=== PATIENT | female | born 1995 | race Hispanic/Latino ===

== ENCOUNTER 2018-06-15 11:43 | Emergency (ER) | payer SELFPAY ==
--- NOTE | 2018-06-15 13:23 | RAD REPORT ---
EXAM DESCRIPTION: CTMaxillofacial W/Cont06/15/2018 1:06 pm CLINICAL HISTORY: Left facial/ear pain and swelling COMPARISON: None. TECHNIQUE: Computed axial tomography of the face obtained with coronal and sagittal reconstruction. 50 cc Isovue-[address] scans are performed using dose optimization technique as appropriate and may include automated exposure control or mA/KV adjustment according to patient size. FINDINGS: The left parotid gland is enlarged. Stranding is present within the adjacent fat. A couple of sub centimeter reactive lymph nodes are noted in this region. Mild stranding of the left parapharyngeal fat is seen. A soft tissue abscess is not visualized. The right parotid and submandibular glands appear unremarkable. The visualized airway is unremarkable. IMPRESSION: Enlarged parotid gland with stranding in the adjacent fat consistent with a sialadenitis /cellulitis.
--- NOTE | 2018-06-15 13:36 | EDPHYS ---
Physician Documentation [facility] Name: Sofie Sunshine Age: 23 yrs Sex: Female : 1995 Arrival Date: 06/15/2018 Time: 11:50 Bed 11 Private MD: ED Physician Jsutin Vaughn HPI: 06/15 13:03 This 23 yrs old Female presents to ER via Ambulatory with complaints of Ear kb Pain. 13:03 The patient presents with pain, moderate. The complaints affect the left ear. Onset: kb The symptoms/episode began/occurred 2 week(s) ago. Modifying factors: The symptoms are alleviated by nothing, the symptoms are aggravated by nothing. Associated signs and symptoms: The patient has no apparent associated signs or symptoms. Severity of symptoms: At their worst the symptoms were moderate in the emergency department the symptoms are unchanged. The patient has not experienced similar symptoms in the past. The patient has been recently seen by a physician: at a clinic, earlier today, with similar presenting complaints, and was sent to the [facility] Emergency Department for further evaluation. Pt reports left ear pain for 2 weeks, went to clinic today and was sent here for "a lot of puss in ear." Pt states they told her she may need IV antibiotics so she needed to be seen today.. 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 - Social history:: Smoking status: Patient uses tobacco products, denies chronic smoking, but will smoke occasionally. - Ebola Screening: : No symptoms or risks identified at this time. ROS: 13:05 Constitutional: Negative for fever, chills, and weight loss, Cardiovascular: Negative kb for chest pain, palpitations, and edema, Respiratory: Negative for shortness of breath, cough, wheezing, and pleuritic chest pain, Abdomen/GI: Negative for abdominal pain, nausea, vomiting, diarrhea, and constipation, MS/Extremity: Negative for injury and deformity, Skin: Negative for injury, rash, and discoloration, Neuro: Negative for headache, weakness, numbness, tingling, and seizure. 13:05 ENT: 13:05 ENT: Positive for ear pain. Exam: 13:05 Constitutional: This is a well developed, well nourished patient who is awake, alert, kb and in no acute distress. Head/Face: Normocephalic, atraumatic. Chest/axilla: Normal chest wall appearance and motion. Nontender with no deformity. No lesions are appreciated. Cardiovascular: Regular rate and rhythm with a normal S1 and S2. No gallops, murmurs, or rubs. Normal PMI, no JVD. No pulse deficits. Respiratory: Lungs have equal breath sounds bilaterally, clear to auscultation and percussion. No rales, rhonchi or wheezes noted. No increased work of breathing, no retractions or nasal flaring. Abdomen/GI: Soft, non-tender, with normal bowel sounds. No distension or tympany. No guarding or rebound. No evidence of tenderness throughout. MS/ Extremity: Pulses equal, no cyanosis. Neurovascular intact. Full, normal range of motion. Neuro: Awake and alert, GCS 15, oriented to person, place, time, and situation. Cranial nerves II-XII grossly intact. Motor strength 5/5 in all extremities. Sensory grossly intact. Cerebellar exam normal. Normal gait. 13:05 ENT: External ear(s): swelling, that is moderate, on the left preauricular area, Ear canal(s): erythema, that is moderate, of the left canal, TM's: are normal. Vital Signs: 12:00 BP 137 / 86; Pulse 75; Resp 16 S; Temp 98.8(TE); Pulse Ox 100% on R/A; Weight 89.36 kg aa5 (M); Height 5 ft. 5 in. (165.10 cm) (R); Pain 9/10; 12:00 Body Mass Index 32.78 (89.36 kg, 165.10 cm) aa5 MDM: 12:03 Patient medically screened. kb 13:05 Data reviewed: vital signs, nurses notes. Data interpreted: Pulse oximetry: on room air kb is 100 %. Interpretation: normal. 13:33 Counseling: I had a detailed discussion with the patient and/or guardian regarding: the kb historical points, exam findings, and any diagnostic results supporting the discharge/admit diagnosis, radiology results, the need for outpatient follow up, an ENT specialist, to return to the emergency department if symptoms worsen or persist or if there are any questions or concerns that arise at home. 06/15 12:54 Order name: Urine Dipstick--Ancillary (enter results) 06/15 12:54 Order name: Urine --Ancillary (enter results) 06/15 12:28 Order name: CT Maxillofacial W/cont; Complete Time: 13:30 kb 06/15 12:28 Order name: IV Start; Complete Time: 13:16 kb Administered Medications: 13:40 Not Given (Duplicate Order): Rocephin 1 grams IV at calculated rate once; Given slow IV ss push per pharmacy instructions 13:44 Drug: Rocephin 1 grams Route: IV; Rate: calculated rate; Site: left antecubital; ss 13:58 Follow up: Response: No adverse reaction aa5 Disposition: 06/16 07:15 Co-signature as Attending Physician, Justin Vaughn MD I agree with the assessment and nicole plan of care. Disposition: 06/15/18 13:35 Discharged to Home. Impression: Sialoadenitis. - Condition is Stable. - Discharge Instructions: Parotitis, [id number]. - Prescriptions for Augmentin 875- 125 mg Oral Tablet - take 1 tablet by ORAL route every 12 hours for 10 days; 20 tablet. - Medication Reconciliation Form, Thank You Letter, Antibiotic Education, Prescription Opioid Use form. - Follow up: Emergency Department; When: As needed; Reason: Worsening of condition. Follow up: Norma Pratt MD; When: 2 - 3 days; Reason: Recheck today's complaints, Continuance of care, Re-evaluation by your physician. Signatures: Dispatcher [employer] EDShoshana Ortiz, FILM CRITIC-C FILM CRITIC-Justin Vences MD MD cha Calderon, Audri, RN RN aa5 Shantell Gaines RN RN ss Corrections: (The following items were deleted from the chart) 06/15 14:00 13:35 06/15/2018 13:35 Discharged to Home. Impression: Sialoadenitis. Condition is ss Stable. Forms are Medication Reconciliation Form, Thank You Letter, Antibiotic Education, Prescription Opioid Use. Follow up: Emergency Department; When: As needed; Reason: Worsening of condition. Follow up: Norma Pratt; When: 2 - 3 days; Reason: Recheck today's complaints, Continuance of care, Re-evaluation by your physician. kb
--- NOTE | 2018-06-15 13:36 | ER ---
Nurse's Notes [facility] Name: Sofie Sunshine Age: 23 yrs Sex: Female : 1995 Arrival Date: 06/15/2018 Time: 11:50 Bed 11 Private MD: Diagnosis: Sialoadenitis Presentation: 06/15 11:59 Presenting complaint: Patient states: left ear pain that began 2 weeks ago. Pt states aa5 "at night I feel my throat sore and like I have phlegm". Denies cough. Transition of care: patient was not received from another setting of care. Onset of symptoms was May 2018. Risk Assessment: Do you want to hurt yourself or someone else? Patient reports no desire to harm self or others. Initial Sepsis Screen: Does the patient meet any 2 criteria? No. Patient's initial sepsis screen is negative. Does the patient have a suspected source of infection? No. Patient's initial sepsis screen is negative. Care prior to arrival: None. 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 - Social history:: Smoking status: Patient uses tobacco products, denies chronic smoking, but will smoke occasionally. - Ebola Screening: : No symptoms or risks identified at this time. Screenin:00 Abuse screen: Denies threats or abuse. Nutritional screening: No deficits noted. aa5 Tuberculosis screening: No symptoms or risk factors identified. Fall Risk None identified. Assessment: 12:00 General: Appears comfortable, Behavior is calm, cooperative. Pain: Complains of pain in aa5 left ear Pain currently is 9 out of 10 on a pain scale. Neuro: Level of Consciousness is awake, alert, obeys commands, Oriented to person, place, time, situation. Cardiovascular: Heart tones S1 S2 present Rhythm is regular. Respiratory: Airway is patent Respiratory effort is even, unlabored, Respiratory pattern is regular, symmetrical. GI: No signs and/or symptoms were reported involving the gastrointestinal system. : No signs and/or symptoms were reported regarding the genitourinary system. EENT: Throat is clear. Derm: Skin is pink, warm \\T\\ dry. Musculoskeletal: Range of motion: intact in all extremities. 13:05 Reassessment: Pt in CT . aa5 13:58 Reassessment: Patient is alert, oriented x 3, equal unlabored respirations, skin aa5 warm/dry/pink. 13:58 Pain: Pain currently is 7 out of 10 on a pain scale. aa5 Vital Signs: 12:00 BP 137 / 86; Pulse 75; Resp 16 S; Temp 98.8(TE); Pulse Ox 100% on R/A; Weight 89.36 kg aa5 (M); Height 5 ft. 5 in. (165.10 cm) (R); Pain 9/10; 12:00 Body Mass Index 32.78 (89.36 kg, 165.10 cm) aa5 ED Course: 11:50 Patient arrived in ED. mr 11:59 Arm band placed on. aa5 11:59 Patient has correct armband on for positive identification. Adult w/ patient. aa5 12:00 Triage completed. aa5 12:02 Shoshana Waite FNP-C is PHCP. kb 12:02 Justin Vaughn MD is Attending Physician. kb 12:31 Manjula Anderson, ANNETTA is Primary Nurse. aa5 13:05 Inserted saline lock: 22 gauge in left antecubital area, using aseptic technique. aa5 ,using aseptic technique. IV inserted by CT. 13:05 No provider procedures requiring assistance completed. aa5 13:09 CT Maxillofacial W/cont In Process Unspecified. EDMS 13:35 Norma Pratt MD is Referral Physician. kb 13:55 IV discontinued, intact, bleeding controlled, No redness/swelling at site. Pressure aa5 dressing applied. Administered Medications: 13:40 Not Given (Duplicate Order): Rocephin 1 grams IV at calculated rate once; Given slow IV ss push per pharmacy instructions 13:44 Drug: Rocephin 1 grams Route: IV; Rate: calculated rate; Site: left antecubital; ss 13:58 Follow up: Response: No adverse reaction aa5 Outcome: 13:35 Discharge ordered by . kb 13:58 Discharged to home ambulatory, with family. aa5 13:58 Condition: stable 13:58 Discharge instructions given to patient, Instructed on discharge instructions, follow up and referral plans. medication usage, Demonstrated understanding of instructions, follow-up care, medications, Prescriptions given X 1. 14:00 Patient left the ED. ss Signatures: Dispatcher [employer] EDMA Shoshana Waite, ALTA STEWART-Denise Prado mr ParkManjula frey, RN RN aa5 Shantell Gaines RN RN ss
[2018-06-15] MEDS ORDERED: CEFTRIAXONE/SWI 1gm 1 GM/10 ML SYR ONE (13:50)
[2018-06-15 14:21] LABS: Urine Blood NEGATIVE (NEG); Urine Glucose NEGATIVE (NEG); Urine Protein NEGATIVE (NEG); Urine Specific Gravity 1.025 (1.005-1.030); Urine pH 5.5 (5.0-7.0)
== END 2018-06-15 14:00 | disposition home or self-care (01) ==
LOC: ER 11:43
DX: K11.20 Sialoadenitis, unspecified (principal)
CPT/HCPCS: 70487; 81003; 81025; J0696; Q9967